=== PATIENT | male | born 2005 | race Two or more races ===

== ENCOUNTER 2024-07-30 15:22 | Emergency (ER) | payer SELFPAY ==
--- NOTE | 2024-07-30 15:50 | PC.NURSE ---
called pt back, no answer at this time
--- NOTE | 2024-07-30 16:13 | PC.NURSE ---
CALLED PT BACK, NO ANSWER AT THIS TIME
--- NOTE | 2024-07-30 16:27 | PC.NURSE ---
CALLED PT BACK, NO ANSWER AT THIS TIME
--- NOTE | 2024-07-30 17:22 | PC.NURSE ---
PT NOT FOUND IN OR OUTSIDE OF LOBBY X3. PT ELOPED.
== END 2024-07-30 17:23 | disposition left against medical advice (07) ==
LOC: SERX 16:59
PROVIDERS: Emergency Provider Emergency Medicine
DX: Z53.21 Procedure and treatment not carried out due to patient leaving prior to being seen by health care provider (principal)